=== PATIENT | female | born 1995 | race Two or more races ===

== ENCOUNTER 2017-05-24 13:29 | Emergency (ER) | payer MEDICAID ==
[~2017-05-24] VITALS: Ht 180.3 cm; Wt 71.2 kg
[2017-05-24] MEDS ORDERED: Sodium Chloride 500ML 500 ML IV ONE (13:58)
--- NOTE | 2017-05-24 14:02 | Emergency Room Report ---
History of Present Illness General Chief Complaint: Abdominal Pain Source: Patient Present Illness HPI After increased epigastric pain. Patient had gradual onset of symptoms. Patient reported having intermittent pain worse approximately 10-15 minutes after eating. The patient denied hematemesis or bloody stools. She reported having episode of diarrhea. Pain is described as a sharp sensation. It was not changed with respirations. The patient denied any fever. She is approximately 6 days . She denies any fever. She has not dizzy or lightheaded. She reports breast-feeding currently. She delivered a full-term . She denies recent antibiotic use. Allergies: Coded Allergies: No Known Allergies (Unverified , 05/24/17) Patient History Past Medical History: see triage record Last Menstrual Period: 08/17/16 Now: No : 2 Para: 1 Reviewed Nursing Documentation: PMH: Agreed, PSxH: Agreed Nursing Documentation-PMH Past Medical History: No Stated History Review of Systems All Other Systems: negative except mentioned in HPI Physical Exam Vital Signs Date Time Temp Pulse Resp B/P (MAP) Pulse Ox O2 Delivery O2 Flow Rate FiO2 05/24/17 13:45 97.9 70 16 108/71 99 Room Air Sp02 EP Interpretation: reviewed, normal General Appearance: normal inspection, well appearing, no apparent distress, alert, GCS 15 Head: atraumatic ENT: normal ENT inspection, hearing grossly normal, normal voice Neck: normal inspection, full range of motion, supple, no bony tend Respiratory: normal inspection, lungs clear, normal breath sounds, no respiratory distress, no retraction, no wheezing Cardiovascular #1: regular rate, rhythm, no edema Gastrointestinal: normal inspection, normal bowel sounds, non tender, soft, no guarding, no hernia Genitourinary: no CVA tenderness Musculoskeletal: normal inspection, back normal, normal range of motion Neurologic: normal inspection, alert, oriented x3, responsive, section chief III-XII nml as tested, speech normal Psychiatric: normal inspection, judgement/insight normal, mood/affect normal Skin: normal inspection, normal color, no rash Medical Decision Making Diagnostic Impression: Primary Impression: Urinary tract infection ER Course Patient presented for abdominal pain. Differential diagnoses included ischemic bowel, appendicitis, perforated viscus, abdominal aortic aneurysm, inferior myocardial infarction,pulmonary embolism, viral gastroenteritis among others. Because of complexity of patient's case laboratory testing and imaging studies were ordered. Patient was given IV fluids I laboratory testing showed evidence of urinary tract infection.The ultrasound of the abdomen showed no gallstonesThe patient was advised followup with her [employer]. She is given prescription for Keflex. Labs Test 05/24/17 14:30 White Blood Count 10.1 K/UL (4.8-10.8) Red Blood Count 4.81 M/UL (4.20-5.40) Hemoglobin 14.7 G/DL (12.0-16.0) Hematocrit 44.7 % (37.0-47.0) Mean Corpuscular Volume 93 FL (80-99) Mean Corpuscular Hemoglobin 30.6 PG (27.0-31.0) Mean Corpuscular Hemoglobin Concent 32.9 G/DL (32.0-36.0) Red Cell Distribution Width 12.6 % (11.6-14.8) Platelet Count 355 K/UL (150-450) Mean Platelet Volume 8.3 FL (6.5-10.1) Neutrophils (%) (Auto) 80.0 % (45.0-75.0) Lymphocytes (%) (Auto) 14.0 % (20.0-45.0) Monocytes (%) (Auto) 4.7 % (1.0-10.0) Eosinophils (%) (Auto) 0.8 % (0.0-3.0) Basophils (%) (Auto) 0.5 % (0.0-2.0) Urine Color Yellow Urine Appearance Slightly cloudy Urine pH 6 (4.5-8.0) Urine Specific [place] 1.015 (1.005-1.035) Urine Protein Negative (NEGATIVE) Urine Glucose (UA) Negative (NEGATIVE) Urine Ketones Negative (NEGATIVE) Urine Occult Blood 4+ (NEGATIVE) Urine Nitrite Negative (NEGATIVE) Urine Bilirubin Negative (NEGATIVE) Urine Urobilinogen Normal MG/DL (0.0-1.0) Urine Leukocyte Esterase 3+ (NEGATIVE) Urine RBC 10-15 /HPF (0 - 2) Urine WBC 20-30 /HPF (0 - 2) Urine Squamous Epithelial Cells Moderate /LPF (NONE/OCC) Urine Amorphous Sediment Few /LPF (NONE) Urine Bacteria Few /HPF (NONE) Urine Mucus Few /LPF (NONE/OCC) Sodium Level 138 MMOL/L (136-145) Potassium Level 3.7 MMOL/L (3.5-5.1) Chloride Level 105 MMOL/L (98-107) Carbon Dioxide Level 25 MMOL/L (21-32) Anion Gap 8 (5-15) Blood Urea Nitrogen 10 mg/dL (7-18) Creatinine 0.6 MG/DL (0.55-1.30) Estimat Glomerular Filtration Rate > 60 mL/min (>60) Glucose Level 85 MG/DL (74-106) Calcium Level 9.2 MG/DL (8.5-10.1) Total Bilirubin 0.3 MG/DL (0.2-1.0) Aspartate Amino Transf (AST/SGOT) 28 U/L (15-37) Alanine Aminotransferase (ALT/SGPT) 47 U/L (12-78) Alkaline Phosphatase 175 U/L (46-116) Troponin I 0.000 ng/mL (0.000-0.056) Total Protein 8.0 G/DL (6.4-8.2) Albumin 3.1 G/DL (3.4-5.0) Globulin 4.9 g/dL Albumin/Globulin Ratio 0.6 (1.0-2.7) Lipase 114 U/L (73-393) Last Vital Signs Date Time Temp Pulse Resp B/P (MAP) Pulse Ox O2 Delivery O2 Flow Rate FiO2 05/24/17 13:45 97.9 70 16 108/71 99 Room Air Status: improved Disposition: HOME, SELF-CARE Condition: Stable Scripts Ondansetron (Zofran) 4 Mg Tablet 4 MG ORAL Q6H Y for Nausea & Vomiting, #30 TAB 0 Refills Prov: Lenin Rice 05/24/17 Cephalexin* (KEFLEX*) 500 Mg Capsule 500 MG ORAL Q6H, #28 CAP 0 Refills Prov: Lenin Rice 05/24/17 Lenin Rice May 24, 2017 14:02
[2017-05-24 14:41] LABS: APPEARANCE,URINE SLIGHTLY CLOUDY; KETONES,URINE NEGATIVE (NEGATIVE); LEUKOCYTE ESTERASE ,URINE 3+ (NEGATIVE); NITRITE,URINE NEGATIVE (NEGATIVE); PH,URINE 6 (4.5-8.0); PROTEIN,URINE NEGATIVE (NEGATIVE); UROBILINOGEN,URINE NORMAL MG/DL (0.0-1.0)
[2017-05-24 14:50] LABS: BASOPHILS % (AUTO) 0.5 % (0.0-2.0); EOSINOPHILS % (AUTO) 0.8 % (0.0-3.0); MEAN CORPUSCULAR HEMOGLOBIN 30.6 PG (27.0-31.0); MEAN CORPUSCULAR HGB CONC 32.9 G/DL (32.0-36.0); MEAN CORPUSCULAR VOLUME 93 FL (80-99); MEAN PLATELET VOLUME 8.3 FL (6.5-10.1); MONOCYTES % (AUTO) 4.7 % (1.0-10.0); PLATELET COUNT 355 K/UL (150-450); RED BLOOD COUNT 4.81 M/UL (4.20-5.40); RED CELL DISTRIBUTION WIDTH 12.6 % (11.6-14.8); WHITE BLOOD COUNT 10.1 K/UL (4.8-10.8)
[2017-05-24 14:55] LABS: AMORPHOUS SEDIMENT,UR FEW /LPF; BACTERIA,URINE FEW /HPF; MUCUS,URINE FEW /LPF (NONE/OCC); SQUAMOUS EPITHELIAL CELL,UR MODERATE /LPF (NONE/OCC); WBC,URINE 20-30 /HPF (0 - 2)
[2017-05-24] MEDS ORDERED: KEFLEX500 MG ORAL (15:11)
[2017-05-24 15:21] LABS: ALANINE AMINOTRANSFERASE 47 U/L (12-78); ALBUMIN/GLOBULIN RATIO 0.6 (1.0-2.7); ANION GAP 8 (5-15); ASPARTATE AMINO TRANSFERASE 28 U/L (15-37); CALCIUM 9.2 MG/DL (8.5-10.1); CARBON DIOXIDE 25 MMOL/L (21-32); CHLORIDE 105 MMOL/L (98-107); CREATININE 0.6 MG/DL (0.55-1.30); GLOMERULAR FILTRATION RATE > 60 mL/min (>60); LIPASE 114 U/L (73-393); POTASSIUM 3.7 MMOL/L (3.5-5.1); SODIUM 138 MMOL/L (136-145)
--- NOTE | 2017-05-24 15:38 | Diagnostic Imaging Report ---
Indication: Epigastric abdominal pain, nausea, vomiting Technique: Castaneda-scale and duplex images of the upper abdomen were obtained Comparison: None Findings: Gallbladder is unremarkable, without stones, wall thickening, nor pericholecystic fluid. Sonographic Hunter's sign is negative. Common bile duct measures 4 mm in diameter. No intrahepatic biliary ductal dilatation. Liver demonstrates normal echogenicity, no focal abnormality. Portal vein and hepatic veins are patent. Pancreas is unremarkable. Spleen is unremarkable. Left kidney measures 11.4 cm in length. Right kidney measures 10.8 cm length. Both kidneys demonstrate normal echogenicity. There is no hydronephrosis. No focal abnormality . Non-aneurysmal abdominal aorta . Impression: Negative
[2017-05-24] MEDS ORDERED: ZOFRAN4 MG ORAL (15:41)
[2017-05-24 15:42] VITALS: BP 108/71
[2017-05-24 15:47] VITALS: BP 101/58
== END 2017-05-24 15:45 | disposition home or self-care (01) ==
LOC: EMR 14:05
DX: O86.20 Urinary tract infection following delivery, unspecified (principal)
CPT/HCPCS: 36415; 76700; 80053; 81003; 83690; 84484; 85025; 87086; 96361; 96374; 99284; J2405; J7040

== ENCOUNTER 2018-04-26 06:26 | Emergency (ER) | payer MEDICAID, OTHER ==
[~2018-04-26] VITALS: Ht 152.4 cm; Wt 63.5 kg
[~2018-04-26 06:26] MED LIST: KEFLEX500 MG ORAL; ZOFRAN4 MG ORAL
[2018-04-26] MEDS ORDERED: NKM (06:33)
[2018-04-26 07:06] VITALS: BP 100/65
--- NOTE | 2018-04-26 07:17 | Emergency Room Report ---
History of Present Illness General Chief Complaint: Skin Rash/Abscess Source: Patient Present Illness HPI The patient states that she has several "bumps" on her skin near her vulva and on her buttock. She notes that a couple of them "popped" on their own. She does shave in this area and uses conditioner. She denies f/c/s. She has no other complaints. Allergies: Coded Allergies: No Known Allergies (Unverified , 05/24/17) Patient History Past Medical History: none Past Surgical History: none Social History: Denies: smoking, alcohol use, drug use Last Menstrual Period: now Reviewed Nursing Documentation: PMH: Agreed; PSxH: Agreed Nursing Documentation-PMH Past Medical History: No Stated History Review of Systems All Other Systems: negative except mentioned in HPI Physical Exam Vital Signs Date Time Temp Pulse Resp B/P (MAP) Pulse Ox O2 Delivery O2 Flow Rate FiO2 04/26/18 06:30 98.2 77 16 100/65 99 Room Air 98.2 Sp02 EP Interpretation: reviewed, normal General Appearance: no apparent distress, alert, GCS 15, non-toxic Head: normocephalic, atraumatic Eyes: bilateral eye normal inspection, bilateral eye PERRL ENT: hearing grossly normal, normal pharynx, no angioedema, normal voice Neck: normal inspection Respiratory: no respiratory distress, no retraction, no accessory muscle use, speaking full sentences Rectal: deferred Musculoskeletal: back normal, gait/station normal, normal range of motion, non- tender Neurologic: alert, oriented x3, responsive, motor strength/tone normal, sensory intact, speech normal Psychiatric: judgement/insight normal, memory normal, mood/affect normal, no suicidal/homicidal ideation Skin: normal color, warm/dry, well hydrated, other - Scattered papules on skin of inferior buttocks and skin near gluteal cleft. Lymphatic: no adenopathy Medical Decision Making Diagnostic Impression: Primary Impression: Folliculitis ER Course This patient has very mild folliculitis w/o e/o abscess. These are tiny areas that are acne like. The patient was instructed to stop shaving and to use warm baths with epsom salt soaks as needed. No intervention indicated as these will likely self resolve. The patient is given close return precautions and f/u instructions. Last Vital Signs Date Time Temp Pulse Resp B/P (MAP) Pulse Ox O2 Delivery O2 Flow Rate FiO2 04/26/18 07:06 98.2 72 16 100/65 99 Room Air 98.2 Status: improved Disposition: HOME, SELF-CARE Condition: Improved Referrals: NOT CHOSEN [facility]/,REFERRING (PCP) Beatriz Chavez DO Apr 26, 2018 07:17
[2018-04-26 07:29] VITALS: BP 100/65
== END 2018-04-26 07:30 | disposition home or self-care (01) ==
LOC: EMR 07:07
DX: L73.9 Follicular disorder, unspecified (principal)
CPT/HCPCS: 99282

== ENCOUNTER 2018-07-13 11:24 | Emergency (ER) | payer MEDICAID ==
[~2018-07-13] VITALS: Ht 152.4 cm; Wt 61.2 kg
[~2018-07-13 11:24] MED LIST changes: +NKM
[2018-07-13 11:30] VITALS: BP 118/68
[2018-07-13] MEDS ORDERED: ACETAMINOPHEN325 M1 ORAL (11:30)
--- NOTE | 2018-07-13 12:45 | Emergency Room Report ---
History of Present Illness General Chief Complaint: Pain Source: Patient Present Illness HPI 22-year-old female presents to the emergency department complaining of 6 out of 10 in severity sore throat, left ear pain and nasal congestion 3 days. She also reports erythema, discharge and crusting to the left eye 2 days. Patient denies changes in vision, foreign body sensation or pain. Patient also reports having intermittent muscular pain to the left upper chest, left side of the neck and intermittently in the shoulder x over 3 months. She is right hand dominant. Patient denies trauma or fall. Patient denies fevers or chills she reports that on occasion her right ear will hurt as well. Patient denies sputum production. Patient does report cough. Patient denies recent travel or ill contacts. She denies significant past medical history especially cardiac history. she denies history of asthma, COPD or smoking. She denies neck pain, neck stiffness or photophobia. Allergies: Coded Allergies: No Known Allergies (Unverified , 07/13/18) Patient History Past Medical History: see triage record Past Surgical History: none Pertinent Family History: none Last Menstrual Period: 2 months ago Now: No Reviewed Nursing Documentation: PMH: Agreed; PSxH: Agreed Nursing Documentation-PMH Past Medical History: No Stated History Review of Systems All Other Systems: negative except mentioned in HPI Physical Exam Vital Signs Date Time Temp Pulse Resp B/P (MAP) Pulse Ox O2 Delivery O2 Flow Rate FiO2 07/13/18 11:25 98.8 98 24 118/68 96 Room Air Sp02 EP Interpretation: reviewed, normal General Appearance: no apparent distress, alert, GCS 15, non-toxic Head: normocephalic, atraumatic Eyes: bilateral eye normal inspection, bilateral eye PERRL, bilateral eye other - LEFt eye erythematous, purulent d/c noted, wet appearance. no scleral injection, there is conjunctival injection. ENT: hearing grossly normal, normal pharynx, normal voice, TMs + canals normal , uvula midline, moist mucus membranes, nasal congestion, pharyngeal erythema Neck: full range of motion, no meningismus Respiratory: chest non-tender, lungs clear, normal breath sounds, no respiratory distress, no wheezing, respiratory distress, speaking full sentences Cardiovascular #1: regular rate, rhythm, no edema Musculoskeletal: back normal, gait/station normal, normal range of motion, tender - mild left trapezius TTP, FROM of neck and left shoulder. Neurologic: alert, oriented x3, responsive, motor strength/tone normal, sensory intact, speech normal, grossly normal Psychiatric: judgement/insight normal Skin: normal color, no rash, warm/dry, well hydrated Lymphatic: no adenopathy Medical Decision Making PA Attestation Dr. Stout is my supervising Physician whom patient management has been discussed with. Diagnostic Impression: Primary Impression: Conjunctivitis Qualified Codes: H10.32 - Unspecified acute conjunctivitis, left eye Additional Impressions: Viral syndrome Neck muscle spasm ER Course 22-year-old female presents to the emergency department complaining of 6 out of 10 in severity sore throat, left ear pain and nasal congestion 3 days. She also reports erythema, discharge and crusting to the left eye 2 days. Patient denies changes in vision, foreign body sensation or pain. Patient also reports having intermittent muscular pain to the left upper chest, left side of the neck and intermittently in the shoulder. Patient denies trauma or fall. Patient denies fevers or chills she reports that on occasion her right ear will hurt as well. Patient denies sputum production. Patient does report cough. Patient denies recent travel or ill contacts. She denies significant past medical history especially cardiac history. she denies history of asthma, COPD or smoking. She denies neck pain, neck stiffness or photophobia. Ddx considered but are not limited to: corneal abrasion, acute glaucoma, globe rupture, FB, Corneal Ulcer, conjunctivitis. Iridis, orbital cellulitis,keratitis , sinusitis, URI, pneumonia, meningitis, pharyngitis just to name a few Vital signs: are WNL, pt. is afebrile H&PE are most consistent with: bacterial conjunctivitis, and Viral URI ORDERS: none at this time. ED INTERVENTIONS: none at this time. DISCHARGE: At this time pt. is stable for d/c to home. Will provide printed patient care instructions, and any necessary prescriptions. Care plan and follow up instructions have been discussed with the patient prior to discharge. Last Vital Signs Date Time Temp Pulse Resp B/P (MAP) Pulse Ox O2 Delivery O2 Flow Rate FiO2 18 11:30 98.8 78 24 118/68 96 Room Air Disposition: HOME, SELF-CARE Condition: Stable Scripts Cetirizine Hcl/Pseudoephedrine (ZYRTEC-D TABLET) 1 Each Tab.er.12h 1 EACH ORAL Q12HR, #14 TAB Prov: Nunu Hall 07/13/18 Ibuprofen* (MOTRIN*) 600 Mg Tablet 600 MG ORAL THREE TIMES A DAY, #30 TAB 0 Refills Prov: Nunu Hall 07/13/18 Methocarbamol* (ROBAXIN-750*) 750 Mg Tablet 750 MG PO QID, #28 TAB 0 Refills Prov: Nunu Hall 07/13/18 Ofloxacin (OCUFLOX) 5 Ml Drops 2 DROP OP BID, #5 ML Prov: Nunu Hall 07/13/18 Referrals: [facility],REFERRING (PCP) Additional Instructions: Take medications as directed. Follow up with a Primary Care Provider in 3-5 days, even if your symptoms have resolved. --Please review list of primary care clinics, if you do not already have a primary care provider Return sooner to ED if new symptoms occur, or current symptoms become worse. Do not drink alcohol, drive, or operate heavy machinery while taking Robaxin ( Muscle Relaxers) as this may cause drowsiness. - Please note that this Emergency Department Report was dictated using [employer] lead project manager technology software, occasionally this can lead to erroneous entry secondary to interpretation by the dictation equipment. Nunu Hall Jul 13, 2018 12:45
[2018-07-13] MEDS ORDERED: ZYRTEC-D TABLE1 EACH ORAL (12:46)
[2018-07-13] MEDS ORDERED: OCUFLOX5 ML OP (12:46)
[2018-07-13] MEDS ORDERED: ROBAXIN-750750 MG PO (12:46)
[2018-07-13] MEDS ORDERED: IBUPROFEN600 MG ORAL (12:46)
[2018-07-13 12:54] VITALS: BP 118/68
== END 2018-07-13 12:55 | disposition home or self-care (01) ==
LOC: EMR 11:51
DX: H10.9 Unspecified conjunctivitis (principal); B34.9 Viral infection, unspecified; M62.838 Other muscle spasm
CPT/HCPCS: 99283